=== PATIENT | male | born 1985 | race Caucasian/White ===

== ENCOUNTER 2018-03-15 14:04 | Emergency (ER) | payer OTHER ==
[2018-03-15] MEDS ORDERED: ADENOSINE 6 MG/ 2ML VIAL IV ONE (14:19)
[2018-03-15] MEDS ORDERED: NA CHLORIDE 0.9% 1,000 ML ONE (14:33)
--- NOTE | 2018-03-15 15:03 | RAD REPORT ---
EXAM DESCRIPTION: RAD - Chest Single View - 03/15/2018 2:37 pm CLINICAL HISTORY: Chest pain, arrhythmia COMPARISON: September 2017 TECHNIQUE: AP portable chest image was obtained 1436 hours . FINDINGS: Lungs are clear. Heart and vasculature are normal. No measurable pleural effusion and no p neumothorax. No acute bony abnormality seen. No acute aortic findings. Resuscitation paddle overlies the right chest. IMPRESSION: No acute cardiopulmonary process. No significant interval change.
[2018-03-15 15:29] LABS: BUN Blood Urea Nitrogen 12 mg/dL (7-18); Bicarbonate 30 mmol/L (21-32); Glucose Level 125 mg/dL (74-106); Potassium 3.7 mmol/L (3.5-5.1); Sodium Level 144 mmol/L (136-145); Troponin I < 0.02 ng/mL (0.0-0.045)
--- NOTE | 2018-03-15 15:40 | ER ---
Nurse's Notes [facility] Name: Nicholas Bell Age: 32 yrs Sex: Male : 1985 Arrival Date: 03/15/2018 Time: 14:09 Bed 4 Private MD: Diagnosis: Supraventricular tachycardia Presentation: 03/15 14:09 Presenting complaint: EMS states: He was sitting at his desk at work when he suddenly aj1 started to have palpitations and chest pain. Patient was pale and diaphoretic with a heart rate in the 180s on EMS arrival, en route his heart rate increased to 210. 12 lead EKG showed SVT. 18 gauge IV was initiated to the left AC. Patient was given Adenosine 6mg IV push with no effect, then an additional 12mg was given with no effect. Patient reports continued chest pain and palpitations at this time. 14:09 Care prior to arrival: Medication(s) given: Adenosine, 6 mg, 12 mg, IV initiated. 18 aj1 GA, in the left antecubital area. 14:39 Transition of care: patient was not received from another setting of care. Onset of iw symptoms was March 15, 2018. Risk Assessment: Do you want to hurt yourself or someone else? Patient reports no desire to harm self or others. Initial Sepsis Screen: Does the patient meet any 2 criteria? No. Patient's initial sepsis screen is negative. Does the patient have a suspected source of infection? No. Patient's initial sepsis screen is negative. 14:39 Method Of Arrival: EMS: [facility] iw 14:39 Acuity: ISAAC 2 iw Triage Assessment: 14:09 General: Appears uncomfortable, Behavior is cooperative, anxious. Pain: Complains of aj1 pain in chest Pain currently is 8 out of 10 on a pain scale. Quality of pain is described as tightness. Neuro: Level of Consciousness is awake, alert, obeys commands. Cardiovascular: Reports chest pain, palpitations, Heart tones S1 S2 present Capillary refill < 3 seconds Rhythm is SVT. Respiratory: Airway is patent Respiratory effort is even, unlabored, Respiratory pattern is regular, symmetrical. GI: No signs and/or symptoms were reported involving the gastrointestinal system. : No signs and/or symptoms were reported regarding the genitourinary system. Derm: Skin is diaphoretic, Skin is pale. Musculoskeletal: No signs and/or symptoms reported regarding the musculoskeletal system. Circulation, motion, and sensation intact. Historical: - Allergies: 14:33 No Known Allergies; iw - Home Meds: 14:33 None [Active]; iw - Immunization history:: Flu vaccine is not up to date. - Social history:: Smoking status: Patient/guardian denies using tobacco. - Family history:: not pertinent. - Ebola Screening: : Patient denies travel to an Ebola-affected area in the 21 days before illness onset. - Hospitalizations: : No recent hospitalization is reported. Screenin:09 Abuse screen: Denies threats or abuse. Denies injuries from another. Nutritional aj1 screening: No deficits noted. Tuberculosis screening: No symptoms or risk factors identified. 16:12 Fall Risk None identified. aj1 Assessment: 14:09 Reassessment: see triage assessment. aj1 14:25 Reassessment: Dr. Dumas at bedside. Adenosine administered per orders. Patient aj1 converted to sinus tachycardia in the 120s. Patient states that he felt bad when the medication was given, but now he is feeling better. Denies dizziness, chest pain, shortness of breath at this time. 14:37 Reassessment: Patient appears in no apparent distress at this time. Patient and/or iw family updated on plan of care and expected duration. Pain level reassessed. Patient is alert, oriented x 3, equal unlabored respirations, skin warm/dry/pink. 15:30 Reassessment: Patient and/or family updated on plan of care and expected duration. Pain aj1 level reassessed. General: Appears in no apparent distress. comfortable, Behavior is calm, cooperative, appropriate for age. Pain: Denies pain. Neuro: Level of Consciousness is awake, alert, obeys commands. Cardiovascular: Patient's skin is warm and dry. Rhythm is sinus tachycardia. Respiratory: Airway is patent Respiratory effort is even, unlabored, Respiratory pattern is regular, symmetrical. Derm: Skin is pink, warm \T\ dry. normal. 16:15 Reassessment: Patient appears in no apparent distress at this time. No changes from aj1 previously documented assessment. Patient and/or family updated on plan of care and expected duration. Pain level reassessed. Patient is alert, oriented x 3, equal unlabored respirations, skin warm/dry/pink. Vital Signs: 14:09 BP 140 / 66; Pulse 175; Resp 20; Temp 98.7; Pulse Ox 100% on R/A; Weight 149.69 kg (R); aj1 Height 6 ft. 5 in. (195.58 cm) (R); Pain 8/10; 14:31 BP 136 / 71; Pulse 171; Resp 20 S; Pulse Ox 97% on R/A; iw 14:35 BP 129 / 110; Pulse 119; Resp 20 S; Pulse Ox 95% on R/A; iw 15:00 BP 136 / 98; Pulse 122; Resp 20; Pulse Ox 95% on R/A; aj1 15:30 BP 149 / 96; Pulse 119; Resp 20; Pulse Ox 98% ; aj1 16:14 BP 139 / 99; Pulse 118; Resp 20; Pulse Ox 99% on R/A; aj1 14:09 Body Mass Index 39.13 (149.69 kg, 195.58 cm) aj1 ED Course: 14:09 Patient arrived in ED. rg4 14:09 Ángel Dumas MD is Attending Physician. rn 14:09 No provider procedures requiring assistance completed. Initial lab(s) drawn, by nv, aj1 sent to lab. Inserted saline lock: 20 gauge in right antecubital area, using aseptic technique. Blood collected. Maintain EMS IV. Dressing intact. Good blood return noted. Site clean \T\ dry. Gauge \T\ site: 18g left AC. 14:09 Arm band placed on. aj1 14:09 Patient has correct armband on for positive identification. Bed in low position. Call aj1 light in reach. Side rails up X 1. environmental monitoring specialist on. Pulse ox on. NIBP on. 14:31 Georgie Javier, RN is Primary Nurse. aj1 14:31 EKG done, by meter technician. reviewed by Ángel Dumas MD. sm3 14:35 X-ray completed. Portable x-ray completed in exam room. Patient tolerated procedure jb2 well. 14:40 Triage completed. iw 14:52 Chest Single View In Process Unspecified. EDMS 16:12 IV discontinued, intact, bleeding controlled, No redness/swelling at site. Pressure aj1 dressing applied. Administered Medications: 14:25 Drug: Adenosine 12 mg Route: IVP; Site: left antecubital; aj1 16:11 Follow up: Response: No adverse reaction aj1 14:43 Drug: NS 0.9% 1000 ml Route: IV; Rate: 1000 ml; Site: left antecubital; aj1 16:12 Follow up: IV Status: Completed infusion; IV Intake: 1000ml aj1 Intake: 16:12 IV: 1000ml; Total: 1000ml. aj1 Outcome: 15:40 Discharge ordered by . rn 16:12 Discharged to home ambulatory. aj1 16:12 Condition: good 16:12 Discharge instructions given to patient, Instructed on discharge instructions, follow up and referral plans. Demonstrated understanding of instructions, follow-up care. 16:15 Patient left the ED. aj1 Signatures: Dispatcher [employer] EDGeorgie Davidson RN RN aj1 Harsh Carmona Irene, RN Ángel Antunez MD MD rn Garcia, Rubi 4 Clarissa Golden 3
--- NOTE | 2018-03-15 15:41 | EDPHYS ---
Physician Documentation [facility] Name: Nicholas Bell Age: 32 yrs Sex: Male : 1985 Arrival Date: 03/15/2018 Time: 14:09 Bed 4 Private MD: ED Physician Ángel Dumas HPI: 03/15 14:13 This 32 yrs old Male presents to ER via Unassigned with complaints of rn palpitations. 14:13 The patient presents with a history of heart racing. Context: The symptoms occur at rn rest. Onset: The symptoms/episode began/occurred just prior to arrival. Duration: The patient or guardian reports a single episode, that is still ongoing. Associated signs and symptoms: Pertinent positives: lightheadedness, Pertinent negatives: fever, syncope. Severity of symptoms: At their worst the symptoms were moderate in the emergency department the symptoms have improved. The patient has experienced similar episodes in the past. Reports similar episodes in past but resolved after approx 5-10 min, today lasting longer, assoc with lightheadedness, EMS states diaphoresis, given adenosine 6mg and then 12mg, no response, patient denies current chest pain/sob, but + palpitations. . Historical: - Allergies: 14:33 No Known Allergies; iw - Home Meds: 14:33 None [Active]; iw - Immunization history:: Flu vaccine is not up to date. - Social history:: Smoking status: Patient/guardian denies using tobacco. - Family history:: not pertinent. - Ebola Screening: : Patient denies travel to an Ebola-affected area in the 21 days before illness onset. - Hospitalizations: : No recent hospitalization is reported. ROS: 14:13 Constitutional: Negative for fever, chills, and weight loss, Eyes: Negative for injury, rn pain, redness, and discharge, Neck: Negative for injury, pain, and swelling, Cardiovascular: + palpitations Respiratory: Negative for shortness of breath, cough, wheezing, and pleuritic chest pain, Abdomen/GI: Negative for abdominal pain, nausea, vomiting, diarrhea, and constipation, MS/Extremity: Negative for injury and deformity, Skin: Negative for injury, rash, and discoloration, Neuro: Negative for headache, weakness, numbness, tingling, and seizure. Exam: 14:13 Constitutional: This is a well developed, well nourished patient who is awake, alert, rn and in no acute distress. Head/Face: Normocephalic, atraumatic. Eyes: Pupils equal round and reactive to light, extra-ocular motions intact. Lids and lashes normal. Conjunctiva and sclera are non-icteric and not injected. Cornea within normal limits. Periorbital areas with no swelling, redness, or edema. ENT: MMM Cardiovascular: +tachycardic, regular, no murmur Respiratory: mild tachypnea, speaking full sentences Abdomen/GI: soft, non-tender Skin: Warm, dry with normal turgor. Normal color with no rashes, no lesions, and no evidence of cellulitis. MS/ Extremity: Pulses equal, no cyanosis. Neurovascular intact. Full, normal range of motion. Equal circumference. Neuro: Awake and alert, GCS 15, oriented to person, place, time, and situation. Cranial nerves II-XII grossly intact. Motor strength 5/5 in all extremities. Sensory grossly intact. Cerebellar exam normal. Vital Signs: 14:09 BP 140 / 66; Pulse 175; Resp 20; Temp 98.7; Pulse Ox 100% on R/A; Weight 149.69 kg (R); aj1 Height 6 ft. 5 in. (195.58 cm) (R); Pain 8/10; 14:31 BP 136 / 71; Pulse 171; Resp 20 S; Pulse Ox 97% on R/A; iw 14:35 BP 129 / 110; Pulse 119; Resp 20 S; Pulse Ox 95% on R/A; iw 15:00 BP 136 / 98; Pulse 122; Resp 20; Pulse Ox 95% on R/A; aj1 15:30 BP 149 / 96; Pulse 119; Resp 20; Pulse Ox 98% ; aj1 16:14 BP 139 / 99; Pulse 118; Resp 20; Pulse Ox 99% on R/A; aj1 14:09 Body Mass Index 39.13 (149.69 kg, 195.58 cm) aj1 MDM: 14:09 Patient medically screened. rn 14:28 ED course: EMS administered 6mg and 12mg adenosine, did not improve, another 12mg rn adenosine given here, with conversion to sinus tachycardia. Pt feels much improve.d . 15:39 Differential diagnosis: arrythmia, dehydration, stress disorder. Data reviewed: vital rn signs, nurses notes, lab test result(s), EKG, radiologic studies, plain films, and as a result, I will discharge patient. Counseling: I had a detailed discussion with the patient and/or guardian regarding: the historical points, exam findings, and any diagnostic results supporting the discharge/admit diagnosis, lab results, radiology results, the need for outpatient follow up, to return to the emergency department if symptoms worsen or persist or if there are any questions or concerns that arise at home. Response to treatment: the patient's symptoms have resolved after treatment, the patient's condition has returned to base line, the patient is now symptom free, and as a result, I will discharge patient. Special discussion: I discussed with the patient/guardian in detail that at this point there is no indication for admission to the hospital. It is understood, however, that if the symptoms persist or worsen the patient needs to return immediately for re-evaluation. Based on the history and exam findings, there is no indication for further emergent testing or inpatient evaluation. I discussed with the patient/guardian the need to see the care administrative tech for further evaluation of the symptoms. ED course: Pt now back to baseline, normal lab w/u, now sinus, reports resting HR around 110 anyway, told him if back to normal can go home, but needs cardiology/EP f/u for recurrent SVT, and to avoid stimulants. . 03/15 14:10 Order name: CBC with Diff rn 03/15 14:10 Order name: T4 Free rn 03/15 14:54 Order name: Basic Metabolic Panel; Complete Time: 15:34 [facility] 03/15 14:10 Order name: EKG; Complete Time: 14:52 rn 03/15 14:50 Order name: Chest Single View; Complete Time: 15:07 [facility] 03/15 14:54 Order name: Troponin I; Complete Time: 15:34 [facility] 03/15 14:54 Order name: T4 Free; Complete Time: 15:34 [facility] 03/15 14:54 Order name: Thyroid Stimulating Hormone; Complete Time: 15:34 [facility] 03/15 14:10 Order name: IV Start; Complete Time: 14:43 rn 03/15 14:10 Order name: EKG - Nurse/Tech; Complete Time: 14:44 rn Administered Medications: 14:25 Drug: Adenosine 12 mg Route: IVP; Site: left antecubital; [facility] 16:11 Follow up: Response: No adverse reaction [facility] 14:43 Drug: NS 0.9% 1000 ml Route: IV; Rate: 1000 ml; Site: left antecubital; [facility] 16:12 Follow up: IV Status: Completed infusion; IV Intake: 1000ml [facility] Disposition: 03/15/18 15:40 Discharged to Home. Impression: Supraventricular tachycardia. - Condition is Stable. - Discharge Instructions: Paroxysmal Supraventricular Tachycardia. - Medication Reconciliation Form, Thank You Letter, Antibiotic Education, Prescription Opioid Use form. - Follow up: Private Physician; When: As needed; Reason: Recheck today's complaints, Re-evaluation by your physician. - Problem is new. - Symptoms are resolved. Signatures: Dispatcher [employer] [facility] Georgie Javier RN RN aj1 Justina Brumfield RN RN iw Ángel Dumas MD MD telephonic rn: (The following items were deleted from the chart) 14:56 14:52 Chest Single View+RAD.RAD.BRZ ordered. [facility] 16:15 15:40 03/15/2018 15:40 Discharged to Home. Impression: Supraventricular tachycardia. aj Condition is Stable. Forms are Medication Reconciliation Form, Thank You Letter, Antibiotic Education, Prescription Opioid Use. Follow up: Private Physician; When: As needed; Reason: Recheck today's complaints, Re-evaluation by your physician. Problem is new. Symptoms are resolved. [place]
--- NOTE | 2018-03-15 18:53 | EKG ---
Test Date: 2018-03-15 Test Time: 14:24:14 Shop [employer]: GLORIA MEASUREMENT RESULTS: Intervals: Rate: 119 DE: 164 QRSD: 92 QT: 290 QTc: 407 [place]: P: 51 DE: 164 QRS: 18 T: 97 INTERPRETIVE STATEMENTS: Sinus tachycardia Nonspecific ST and T wave abnormality Abnormal ECG Compared to ECG 03/15/2018 14:05:17 Supraventricular tachycardia no longer present Possible ischemia no longer present ST (T wave) deviation still present Electronically Signed On 03-15-18 18:53:22 NEIGHBORHOOD COORDINATOR by Gregor Jennings
--- NOTE | 2018-03-15 18:54 | EKG ---
Test Date: 2018-03-15 Test Time: 14:05:17 Emr Analyst: GLORIA MEASUREMENT RESULTS: Intervals: Rate: 175 [place]: QRSD: 86 QT: 274 QTc: 467 [place]: P: [place]: QRS: 12 T: 144 INTERPRETIVE STATEMENTS: Supraventricular tachycardia ST & T wave abnormality, consider lateral ischemia Abnormal ECG No previous ECG available for comparison Electronically Signed On 03-15-18 18:53:24 PRINT SUPPORT SPECIALIST by Gregor Jennings
== END 2018-03-15 16:15 | disposition home or self-care (01) ==
LOC: ER 14:04
DX: I47.1 Supraventricular tachycardia (principal)
CPT/HCPCS: 36415; 71045; 80048; 84439; 84443; 84484; 85025; 93005; J0153; J7030